=== PATIENT | female | born 1960 | race African-American/Black ===

== ENCOUNTER 2017-09-11 17:55 | Emergency (ER) | payer BC ==
[2017-09-11] MEDS ORDERED: LOSARTAN POTASSIUM 50 MG TABLET PO ONE (18:25)
[2017-09-11] MEDS ORDERED: HYDROCHLOROTHIAZIDE 25 MG TABLET PO ONE (18:25)
--- NOTE | 2017-09-11 18:35 | ER Document Report ---
ED ENT - General Chief Complaint: Cough, congestion Stated Complaint: SHORTNESS OF BREATH, COUGH Time Seen by Provider: 09/11/17 18:14 Mode of Arrival: Ambulatory Information source: Patient Notes: 37-year-old female presented to ED for concern complaint of a hard cough 1-2 weeks she states the cough has been so hard that sometimes she urinates herself. She also had a runny nose cough congestion and headache. She states she has not had any of her losartan HCTZ for 3-4 days because she did not have money for the co-pay. States she now has the money for the co-pay but she needs one tonight. She states she took some Sudafed for her cough and congestion which is elevated her pulse and blood pressure. Patient was informed she needs to take Coricidin HB for cough and cold symptoms when she has a little bit of blood pressure. TRAVEL OUTSIDE OF THE [place] IN LAST 30 DAYS: No - HPI Patient complains to provider of: Nose problem, Other Onset: Other - Cough 2 weeks Onset/Duration: Persistent, Worse Quality of pain: Achy Severity: None Pain Level: Denies Context: Recent Illness Location of pain: Nose, Sinus Associated symptoms: Chills, Congestion, Cough, Headache, Runny nose, Sinus drainage Similar symptoms previously: Yes Recently seen / treated by doctor: No - Related Data Allergies/Adverse Reactions: No Known Allergies Allergy (Verified 08/18/15 18:25) Past Medical History - General Information source: Patient - Social History Smoking Status: Never Smoker Cigarette use (# per day): No Chew tobacco use (# tins/day): No Smoking Education Provided: No Frequency of alcohol use: None Drug Abuse: None Lives with: Alone Family History: Reviewed & Not Pertinent, DM, Malignancy. denies: Arthritis, CAD, COPD, CVA, Hyperlipidemia, Hypertension, Thyroid Disfunction - Past Medical History Cardiac Medical History: Reports: Hx Hypertension Pulmonary Medical History: Reports: Hx Asthma, Hx Bronchitis EENT Medical History: Reports: None Neurological Medical History: Reports: None Endocrine Medical History: Reports: None Renal/ Medical History: Reports: None Malignancy Medical History: Reports: None GI Medical History: Reports: None Musculoskeltal Medical History: Reports Hx Arthritis, Reports Hx Musculoskeletal Deformity Skin Medical History: Reports None Psychiatric Medical History: Reports: None Traumatic Medical History: Reports: None Infectious Medical History: Reports: None Past Surgical History: Reports: Hx Hysterectomy, Hx Orthopedic Surgery - left total hip replacement, Hx Tubal Ligation - Immunizations Immunizations up to date: Yes Hx Diphtheria, Pertussis, Tetanus Vaccination: Yes Review of Systems - Review of Systems Constitutional: Recent illness EENT: Nose congestion, Nose discharge, Sinus discharge Cardiovascular: No symptoms reported Respiratory: Cough Gastrointestinal: No symptoms reported Genitourinary: No symptoms reported Female Genitourinary: No symptoms reported Musculoskeletal: No symptoms reported Skin: No symptoms reported Hematologic/Lymphatic: No symptoms reported Neurological/Psychological: Headaches -: Yes All other systems reviewed and negative Physical Exam - Vital signs Vitals: Temp Pulse Resp BP Pulse Ox 98.3 F 82 20 170/109 H 97 09/11/17 18:10 09/11/17 18:10 09/11/17 18:10 09/11/17 18:10 09/11/17 18:10 Interpretation: Hypertensive - General General appearance: Appears well, Alert - HEENT Head: Normocephalic, Atraumatic Eyes: Normal Pupils: PERRL Ears: Normal External canal: Normal Tympanic membrane: Normal Sinus: Normal Nasal: Swelling, Clear rhinorrhea Mouth/Lips: Normal Mucous membranes: Normal Pharynx: Post nasal drainage Neck: Normal - Respiratory Respiratory status: No respiratory distress Chest status: Nontender Breath sounds: Nonproductive cough. No: Productive cough, Rales, Rhonchi, Stridor, Wheezing Chest palpation: Normal - Cardiovascular Rhythm: Regular Heart sounds: Normal auscultation Murmur: No - Abdominal Inspection: Normal Distension: No distension Bowel sounds: Normal Tenderness: Nontender Organomegaly: No organomegaly - Back Back: Normal, Nontender - Extremities General upper extremity: Normal inspection, Nontender, Normal color, Normal ROM , Normal temperature General lower extremity: Normal inspection, Nontender, Normal color, Normal ROM , Normal temperature, Normal weight bearing. No: Cordell's sign - Neurological Neuro grossly intact: Yes Cognition: Normal Orientation: AAOx4 Hanna Coma Scale Eye Opening: Spontaneous [place]anna Coma Scale Verbal: Oriented Hanna Coma Scale Motor: Obeys Commands [place] Coma Scale Total: 15 Speech: Normal Motor strength normal: LUE, RUE, LLE, RLE Sensory: Normal - Psychological Associated symptoms: Normal affect, Normal mood - Skin Skin Temperature: Warm Skin Moisture: Dry Skin Color: Normal Course - Re-evaluation Re-evalutation: 09/12/17 02:21 Patient was treated with losartan HCTZ for her elevated blood pressure. Patient was also discharged home with prescription for Phenergan with codeine and instructed to please get Coricidin HB for her cough and cold symptoms and not to use regular [id number] cold medications with Sudafed. - Vital Signs Vital signs: Temp Pulse Resp BP Pulse Ox 98.3 F 80 16 148/93 H 97 09/11/17 18:10 09/11/17 19:14 09/11/17 19:14 09/11/17 19:14 09/11/17 19:14 Discharge - Discharge Clinical Impression: URI (upper respiratory infection) Qualifiers: URI type: unspecified URI Qualified Code(s): J06.9 - Acute upper respiratory infection, unspecified Hypertension Qualifiers: Hypertension type: unspecified Qualified Code(s): I10 - Essential (primary) hypertension Condition: Stable Disposition: HOME, SELF-CARE Instructions: Family Physicians / Practices Additional Instructions: HIGH BLOOD PRESSURE REQUIRING TREATMENT: Your blood pressure is high. This is called "hypertension." Today's reading was _170/109 (normal is less than 140/90). Your history and exam suggest that this is not a temporary problem. You need treatment of your blood pressure. If left untreated, high blood pressure greatly increases your risk of heart attack and stroke. Please don't ignore this problem. If you have blood pressure medicine but aren't using it regularly, start taking it again. Some simple things you can do to help are: Get some aerobic exercise for at least 20 minutes on a daily basis. (See your doctor before beginning any new exercise program.) Eat a low-fat diet. Lose excess weight. Avoid salty foods and avoid adding salt to any of the foods you eat. Avoid diet pills, decongestants, "energizing" herbs, and other medicines that elevate blood pressure. There are many different medicines that treat blood pressure. If your medication causes unpleasant side effects, call your doctor. There are others you can try. Treating hypertension is a life-long investment in your health. HYDROCHLOROTHIAZIDE: Hydrochlorothiazide is a diuretic medication. Diuretics are often called "water pills." The medicine flushes excess salt and water from the body. Diuretics are used for fluid retention (such as heart failure, cirrhosis, or lung disease) and for blood pressure control. Often hydrochlorothiazide is combined with other medicines in the same pill. Most patients prefer to take the medicine in the morning. Hydrochlorothiazide makes extra urine, which can be a problem if you take the pill at night. Diuretics make you lose potassium. Sometimes a good diet with plenty of fruit is enough to replace it. Sometimes a potassium supplement is necessary. Or, hydrochlorothiazide may be combined with medicines that prevent potassium loss. We usually recommend a blood potassium test in a few weeks. Contact your doctor if you develop extreme fatigue, muscle weakness, lethargy, confusion, or palpitations. UPPER RESPIRATORY ILLNESS: You have a viral infection of the respiratory passages -- a "cold." This common infection causes nasal congestion, drainage, and often sore throat and cough. It is highly contagious. The disease usually lasts about 10 to 14 days. There is no "cure" for the viral infection -- it must run its course. If there is a complication, such as bacterial infection in the nose, sinuses, middle ear, or bronchial tubes, antibiotics may be required. The antibiotics won't affect the virus. Drink plenty of fluids. A humidifier may help. An expectorant medication or decongestant may make you more comfortable. Use acetaminophen or ibuprofen for fever or aches. See the doctor if fever persists over two days, if there is any significant worsening of your symptoms, or if you simply fail to improve as expected. Salt and soda solution 1 quart of water 1 tablespoon of salt 1 teaspoon of baking soda Mixed 3 ingredients together and boil for 1 minute Placed in a covered quart jar Use 1/2 ounce of cold solution to gargle 3 times a day FOLLOW-UP CARE: If you have been referred to a physician for follow-up care, call the physician s office for an appointment as you were instructed or within the next two days. If you experience worsening or a significant change in your symptoms, notify the physician immediately or return to the Emergency Department at any time for re-evaluation. Prescriptions: Phenylephrine HCl/Cod/Prometh [Phenergan Vc-Codeine Syrup] 5 ml PO Q6HP PRN # 120 syrup PRN Reason: Forms: Elevated Blood Pressure Referrals: SURESH CHAMBERS MD [Primary Care Provider] - Follow up as needed
[2017-09-11 19:16] VITALS: BP 148/93
== END 2017-09-11 19:17 | disposition home or self-care (01) ==
LOC: ER 17:55
DX: J06.9 Acute upper respiratory infection, unspecified (principal); I10 Essential (primary) hypertension; R51 Headache; Z90.710 Acquired absence of both cervix and uterus
CPT/HCPCS: 99283

== ENCOUNTER 2017-11-26 01:16 | Emergency (ER) | payer BC ==
[2017-11-26] MEDS ORDERED: ACETAMINOPHEN 325 MG TABLET PO ONE (02:39)
[2017-11-26] MEDS ORDERED: ONDANSETRON 4 MG TAB.RAPDIS PO ONE (02:39)
--- NOTE | 2017-11-26 02:40 | ER Document Report ---
ED General - General Chief Complaint: High Blood Pressure Stated Complaint: BLOOD PRESSURE PROBLEMS Time Seen by Provider: 11/26/17 02:25 Notes: Patient is a 57-year-old female that comes emergency department for chief complaint of concerned about her blood pressure. She states that she went to work, find out that she had her schedule changed, became very upset about this, and then at home and tried to sleep, took her blood pressure because she started getting a mild headache, found it was elevated, went back to sleep, took it again it was elevated. She states also when she stands up she is intermittently getting lightheaded. She denies nausea or vomiting, visual changes, focal numbness or weakness. She is compliant with her blood pressure medication (losartan/HCTZ, 100/25 mg). She denies smoking or recreational drugs. TRAVEL OUTSIDE OF THE [place] IN LAST 30 DAYS: No - Related Data Allergies/Adverse Reactions: No Known Allergies Allergy (Verified 08/18/15 18:25) Past Medical History - General Information source: Patient - Social History Smoking Status: Never Smoker Frequency of alcohol use: None Drug Abuse: None Lives with: Family Family History: Reviewed & Not Pertinent, DM, Malignancy. denies: Arthritis, CAD, COPD, CVA, Hyperlipidemia, Hypertension, Thyroid Disfunction Patient has suicidal ideation: No Patient has homicidal ideation: No - Past Medical History Cardiac Medical History: Reports: Hx Hypertension Pulmonary Medical History: Reports: Hx Asthma, Hx Bronchitis Renal/ Medical History: Denies: Hx Peritoneal Dialysis Musculoskeltal Medical History: Reports Hx Arthritis, Reports Hx Musculoskeletal Deformity Past Surgical History: Reports: Hx Hysterectomy, Hx Orthopedic Surgery - left total hip replacement, Hx Tubal Ligation - Immunizations Immunizations up to date: Yes Hx Diphtheria, Pertussis, Tetanus Vaccination: Yes Review of Systems - Review of Systems Constitutional: No symptoms reported EENT: No symptoms reported Cardiovascular: See HPI Respiratory: No symptoms reported Gastrointestinal: No symptoms reported Genitourinary: No symptoms reported Female Genitourinary: No symptoms reported Musculoskeletal: No symptoms reported Skin: No symptoms reported Hematologic/Lymphatic: No symptoms reported Neurological/Psychological: See HPI Physical Exam - Vital signs Vitals: Temp Pulse Resp BP Pulse Ox 97.9 F 89 18 145/98 H 99 11/26/17 01:24 11/26/17 01:24 11/26/17 01:24 11/26/17 01:24 11/26/17 01:24 Interpretation: Normal - General General appearance: Appears well, Alert In distress: None - Patient alert, smiling, well-appearing - HEENT Head: Normocephalic, Atraumatic Eyes: Normal Pupils: PERRL - Respiratory Respiratory status: No respiratory distress Chest status: Nontender Breath sounds: Normal Chest palpation: Normal - Cardiovascular Rhythm: Regular. No: Tachycardia Heart sounds: Normal auscultation, S1 appreciated, S2 appreciated Murmur: No Normal capillary refill: Yes - Abdominal Inspection: Normal Distension: No distension Bowel sounds: Normal Tenderness: Nontender Organomegaly: No organomegaly - Back Back: Normal, Nontender - Extremities General upper extremity: Normal inspection, Nontender, Normal color, Normal ROM , Normal temperature General lower extremity: Normal inspection, Nontender, Normal color, Normal ROM , Normal temperature, Normal weight bearing. 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 Smiling and well-appearing. Blood pressure unremarkable. Neurological exam is normal. No chest pain. No vomiting. No neurological deficits. Patient given Tylenol and Zofran, afterwards she states she feels "great". She states she was stressed out at work but feels better now. CBC, chemistry generally unremarkable with mild leukopenia which is nonspecific. EKG with no acute findings. Unremarkable vital signs. No concerning symptoms reported. Very low suspicion of intracranial hemorrhage, ACS, or other acute abnormality. On reevaluation patient is asking to go home. She also asks if her sinus congestion can be treated with Suha, she was on this but ran out, she also states that she has out of her tramadol and she has chronic back pain and sciatica. Patient was provided with these, discussed workup, follow-up, recommendations, return precautions in detail. Patient states understanding and agreement - Vital Signs Vital signs: Temp Pulse Resp BP Pulse Ox 97.7 F 84 16 144/93 H 99 11/26/17 05:28 11/26/17 05:28 11/26/17 05:28 11/26/17 05:28 11/26/17 05:28 - Laboratory Result Diagrams: 11/26/17 03:00 11/26/17 03:00 Laboratory results interpreted by me: 11/26/17 03:00 WBC 3.7 L Hgb 15.6 H Seg Neutrophils % 38.3 L Lymphocytes % 47.0 H Absolute Neutrophils 1.4 L Discharge - Discharge Clinical Impression: Elevated blood pressure reading, Sinus congestion Condition: Stable Disposition: HOME, SELF-CARE Instructions: Oral Narcotic Medication ([facility]) Additional Instructions: Continue your current blood pressure medication regimen. Follow-up with your primary care to have this checked and for additional management. Take your tramadol for sciatica as needed, take your Zyrtec for your seasonal allergies daily. Return for any concerning symptoms including severe headache, vomiting, chest pain, difficulty breathing, or any other concerning symptoms. Prescriptions: Fexofenadine HCl [Suha Allergy] 180 mg PO DAILY #30 tablet Tramadol HCl 50 mg PO BID #20 tablet Forms: Elevated Blood Pressure
[2017-11-26 03:18] LABS: ABSOLUTE EOSINOPHILS # (AUTO) 0.1 10^3/uL (0.0-0.6); ABSOLUTE LYMPHOCYTES (AUTO) 1.8 10^3/uL (0.5-4.7); ABSOLUTE MONOCYTES (AUTO) 0.4 10^3/uL (0.1-1.4); ABSOLUTE NEUT (AUTO) 1.4 10^3/uL (1.7-8.2); BASOPHILS % (AUTO) 0.7 % (0-2); EOSINOPHILS % (AUTO) 2.5 % (0-6); HEMATOCRIT 45.6 % (36.0-47.0); HEMOGLOBIN 15.6 g/dL (12.0-15.5); MEAN CORPUSCULAR HGB CONC 34.3 g/dL (32.0-36.0); MEAN CORPUSCULAR VOLUME 87 fl (80-97); MONOCYTES % (AUTO) 11.5 % (3-13); PLATELET COUNT 262 10^3/uL (150-450); RED BLOOD COUNT 5.22 10^6/uL (3.72-5.28); RED CELL DISTRIBUTION WIDTH 13.6 % (11.5-14.0); SEGMENTED NEUTROPHILS % (AUTO) 38.3 % (42-78); TOTAL CELLS COUNTED % (AUTO) 100 %; WHITE BLOOD COUNT 3.7 10^3/uL (4.0-10.5)
[2017-11-26 03:45] LABS: ANION GAP 11 (5-19); BLOOD UREA NITROGEN 10 mg/dL (7-20); CALCIUM 10.2 mg/dL (8.4-10.2); CARBON DIOXIDE 27 mmol/L (22-30); CHLORIDE 104 mmol/L (98-107); GLUCOSE 84 mg/dL (75-110); POTASSIUM 3.7 mmol/L (3.6-5.0)
[2017-11-26 05:28] VITALS: BP 144/93
--- NOTE | 2017-11-26 09:57 | EKG REPORT ---
SEVERITY:- BORDERLINE ECG - SINUS RHYTHM PROBABLE LEFT ATRIAL ABNORMALITY : Confirmed by: Rosa Sandoval 26-Nov-2017 09:56:24
== END 2017-11-26 05:30 | disposition home or self-care (01) ==
LOC: ER 01:16
DX: R09.81 Nasal congestion (principal); R03.0 Elevated blood-pressure reading, without diagnosis of hypertension; R51 Headache; R42 Dizziness and giddiness; Z79.899 Other long term (current) drug therapy
CPT/HCPCS: 93005; 99284; 36415; 85025; 80048; 93010; S0119

== ENCOUNTER 2018-08-28 23:17 | Emergency (ER) | payer BC ==
[2018-08-29] MEDS ORDERED: ALBUTEROL SULFATE HFA (90 MCG/PUFF) 8 GM MDI (1 MDI/ER DISP) IH SCH (00:45)
[2018-08-29] MEDS ORDERED: PREDNISOLONE SOD PHOS 15 MG/5 ML ORAL SYRING PO ONE (00:45)
--- NOTE | 2018-08-29 00:46 | ER Document Report ---
ED General - General Chief Complaint: Painful Cough Stated Complaint: COUGH Time Seen by Provider: 08/29/18 00:36 Mode of Arrival: Ambulatory Information source: Patient TRAVEL OUTSIDE OF THE [place] IN LAST 30 DAYS: No - HPI Patient complains to provider of: cough Onset: Other - 49-year-old female with past medical history significant for hypertension as well as reactive airway disease that presents for evaluation of what she says a stereotypical of her seasonal allergy changes. She notes some wheezing and shortness of breath. She denies any chest pain, she denies any lightheadedness diaphoresis emesis fevers chills does have a little bit of phlegm when she coughs. Nothing is seem to make much better nothing seems to make it worse she has not tried anything to help it. In the past she is responded well she says to standard treatments for this. - Related Data Allergies/Adverse Reactions: No Known Allergies Allergy (Verified 08/18/15 18:25) Past Medical History - General Information source: Patient - Social History Smoking Status: Never Smoker Family History: Reviewed & Not Pertinent, DM, Malignancy. denies: Arthritis, CAD, COPD, CVA, Hyperlipidemia, Hypertension, Thyroid Disfunction - Past Medical History Cardiac Medical History: Reports: Hx Hypertension Pulmonary Medical History: Reports: Hx Asthma, Hx Bronchitis Renal/ Medical History: Denies: Hx Peritoneal Dialysis Musculoskeletal Medical History: Reports Hx Arthritis, Reports Hx Musculoskeletal Deformity Past Surgical History: Reports: Hx Hysterectomy, Hx Orthopedic Surgery - left total hip replacement, Hx Tubal Ligation - Immunizations Immunizations up to date: Yes Hx Diphtheria, Pertussis, Tetanus Vaccination: Yes Review of Systems - Review of Systems -: Yes All other systems reviewed and negative Physical Exam - Vital signs Vitals: Temp Pulse Resp BP Pulse Ox 98.4 F 80 18 150/100 H 98 08/29/18 00:10 08/29/18 00:10 08/29/18 00:10 08/29/18 00:10 08/29/18 00:10 - General General appearance: Appears well In distress: None - HEENT Head: Normocephalic Eyes: Normal Conjunctiva: Normal Pupils: PERRL - Respiratory Respiratory status: No respiratory distress Chest status: Nontender Breath sounds: Wheezing - Scant wheezes most prominent in the apices of the lungs Chest palpation: Normal - Cardiovascular Rhythm: Regular Heart sounds: Normal auscultation Murmur: No - Abdominal Inspection: Normal Distension: No distension Tenderness: Nontender - Back Back: Normal - Extremities General upper extremity: Normal inspection, Nontender, Normal color, Normal ROM , Normal temperature General lower extremity: Normal inspection, Nontender, Normal color, Normal ROM , Normal temperature, Normal weight bearing. No: Cordell's sign - Neurological Neuro grossly intact: Yes Cognition: Normal Orientation: AAOx4 Hanna Coma Scale Eye Opening: Spontaneous [place] Coma Scale Verbal: Oriented Hanna Coma Scale Motor: Obeys Commands [place] Coma Scale Total: 15 Speech: Normal Motor strength normal: LUE, RUE, LLE, RLE - Psychological Associated symptoms: Normal affect, Normal mood Course - Re-evaluation Re-evalutation: 08/29/18 02:22 This is a remarkably well-appearing 57-year-old female who has a past medical history of reactive airway disease. On examination she has a scant wheezes in the apices of the lungs but no other obvious symptoms. In the past she is responded well to conservative treatment. Because this seems very typical of her seasonal changes will plan for conservative course of treatment with metered-dose inhaler as well as steroids. We will also administer Tessalon Perles for her cough. Following administration of albuterol patient's cough shortness of breath and wheezes improved. We will plan for outpatient management with albuterol as well as steroids. Do not was represents a more serious underlying condition such as but not limited to pulmonary embolus, myocardial infarction, pneumothorax or otherwise. - Vital Signs Vital signs: Temp Pulse Resp BP Pulse Ox 98.4 F 80 18 150/100 H 98 08/29/18 00:10 08/29/18 00:10 08/29/18 00:10 08/29/18 00:10 08/29/18 00:10 Discharge - Discharge Clinical Impression: Cough, Wheezing Condition: Good Disposition: HOME, SELF-CARE Instructions: Bronchitis With Bronchospasm (Wheezing) ([facility]), Steroid Medication Additional Instructions: You were seen today in the emergency department for your cough as well as wheeze. You had an evaluation including a physical exam, you were given a steroid and an inhaler. Return for worsening shortness of breath, chest pain, inability to breathe or otherwise. Otherwise use the medications prescribed as directed and schedule an appointment with your doctor this week for further evaluation. Prescriptions: Benzonatate [Tessalon Perle 100 mg Capsule] 100 mg PO Q8HP PRN #40 cap PRN Reason: Prednisone [Deltasone 20 mg Tablet] 3 tab PO DAILY 5 Days tablet Forms: Elevated Blood Pressure
[2018-08-29 02:00] VITALS: BP 134/90
== END 2018-08-29 02:01 | disposition home or self-care (01) ==
LOC: ER 23:17
DX: J45.909 Unspecified asthma, uncomplicated (principal); R05 Cough; I10 Essential (primary) hypertension; R06.02 Shortness of breath
CPT/HCPCS: 99283; J7510; J3490

== ENCOUNTER 2018-09-17 22:22 | Emergency (ER) | payer BC ==
[2018-09-17 22:37] VITALS: BP 155/94
[2018-09-17] MEDS ORDERED: DEXAMETHASONE SOD PHOS INJ 10 MG/1 ML VIAL IM ONE (23:14)
--- NOTE | 2018-09-17 23:41 | ER Document Report ---
HPI - HPI Patient complains to provider of: sciatica Time Seen by Provider: 09/17/18 22:46 Pain Level: 4 Context: Pleasant 58 y/o female with h/o sciatica presents with acute lower back pain described as consistent with previous sciatica exacerbations. She states she ran out of her Tramadol Rx and is seeking relief. She denies any fevers, HAINES, SOB , CP, N/V/D, urinary retention, hematuria, saddle parasthesia, weakness or paralysis. - REPRODUCTIVE Reproductive: DENIES: : Past Medical History - General Information source: Patient - Social History Smoking Status: Never Smoker Frequency of alcohol use: None Drug Abuse: None Family History: Reviewed & Not Pertinent, DM, Malignancy. denies: Arthritis, CAD, COPD, CVA, Hyperlipidemia, Hypertension, Thyroid Disfunction - Past Medical History Cardiac Medical History: Reports: Hx Hypertension Pulmonary Medical History: Reports: Hx Asthma, Hx Bronchitis Renal/ Medical History: Denies: Hx Peritoneal Dialysis Musculoskeletal Medical History: Reports Hx Arthritis, Reports Hx Musculoskeletal Deformity Past Surgical History: Reports: Hx Hysterectomy, Hx Orthopedic Surgery - left total hip replacement, Hx Tubal Ligation - Immunizations Immunizations up to date: Yes Hx Diphtheria, Pertussis, Tetanus Vaccination: Yes Vertical Provider Document - CONSTITUTIONAL Agree With Documented VS: Yes Notes: Reviewed vital signs and nursing note as charted by RN. CONSTITUTIONAL: Well-appearing, well-nourished, acting appropriately for age HEAD: Normocephalic, atraumatic, no swelling EYES: PERRL, Conjunctivae clear, no drainage, EOMI, no scleral icterus ENT: External ears without lesions, External auditory canal is patent, TMs without erythema, landmarks clear and well visualized, no rhinorrhea, Pharynx without erythema or lesions, no tonsillar hypertrophy, airway patent, mucous membranes pink and moist NECK: Supple, no cervical lymphadenopathy, no masses CARD: Regular rate and rhythm, no murmurs, no rubs, no gallops, capillary refill < 2 seconds, symmetric pulses RESP: The lungs are clear to auscultation bilaterally, no wheezing, no rales, no rhonchi. Respiratory rate and effort are normal, normal chest excursion. No respiratory distress, no retractions, no stridor, no nasal flaring, no accessory muscle use. ABD/GI: Normal bowel sounds, non-distended, soft, non-tender, no rebound, no guarding, no palpable organomegaly. EXT: Normal ROM in all joints, non-tender to palpation, no effusions, no edema SKIN: Normal color for age and race, warm, dry, good turgor, no acute lesions noted NEURO: No facial asymmetry, moves all extremities equally, motor and sensory function intact MSK: acute TTP along R paraspinal muscle at level of L5 that radiates down right leg with parasthesa in R leg. - INFECTION CONTROL TRAVEL OUTSIDE OF THE [place] IN LAST 30 DAYS: No Course - Re-evaluation Re-evalutation: 09/18/18 00:11 Very pleasant 58-year-old female who presents to the emergency department for her typical sciatic pain that is a severe exacerbation. She has no other concerning symptoms. She denies fever, chest pain, shortness of breath, urinary retention, bowel incontinence, saddle paresthesia. Physical exam is consistent with acute paraspinal tenderness with paresthesias to her right leg. She ran out of her tramadol and is requesting a view until she can see her primary care provider I did a [facility] check which reveals no evidence of prescription misuse. I will also give her dexamethasone 10 mg IM x1 for attempted relief and send her home with a prescription for tramadol 50 mg #15 and Robaxin p.o. She is stable for discharge 09/18/18 00:13 09/18/18 00:19 - Vital Signs Vital signs: Temp Pulse Resp BP Pulse Ox 98.6 F 72 20 155/94 H 96 09/17/18 22:33 09/17/18 22:33 09/17/18 22:33 09/17/18 22:33 09/17/18 22:33 Discharge - Discharge Clinical Impression: Lower back pain Qualifiers: Chronicity: acute Back pain laterality: right Sciatica presence: with sciatica Sciatica laterality: sciatica of right side Qualified Code(s): M54.41 - Lumbago with sciatica, right side Condition: Stable Disposition: HOME, SELF-CARE Instructions: Low Back Pain ([facility]), Warm Packs ([facility]) Additional Instructions: You were seen in the emergency department this evening for lower back pain related to your sciatica. I have prescribed you with a muscle relaxer called Robaxin which will help with your symptoms. You can take this with the tramadol please note that it will make you sleepy and do not drive when taking these medications. If you have severe back pain, or unable to walk, develop a high fever, have urinary retention, or numbness in your sit bones please immediately return to the emergency department. Prescriptions: Tramadol HCl [Ultram 50 mg Tablet] 50 mg PO Q6HP PRN #14 tablet PRN Reason: Methocarbamol [Robaxin 750 mg Tablet] 750 mg PO Q4 #40 tablet Referrals: RAMA RUANO MD [Primary Care Provider] - Follow up as needed
== END 2018-09-18 00:05 | disposition home or self-care (01) ==
LOC: ER 22:22
DX: M54.41 Lumbago with sciatica, right side (principal); I10 Essential (primary) hypertension; Z90.710 Acquired absence of both cervix and uterus; Z96.642 Presence of left artificial hip joint
CPT/HCPCS: 99283; 96372; J1100

== ENCOUNTER 2018-11-11 15:18 | Emergency (ER) | payer BC ==
[2018-11-11] MEDS ORDERED: IPRATROPIUM/ALBUTEROL 0.5-2.5 MG/3 ML AMPUL NEB ONE (16:29)
[2018-11-11] MEDS ORDERED: ALBUTEROL SULFATE HFA (90 MCG/PUFF) 8 GM MDI (1 MDI/ER DISP) IH ONE (16:29)
[2018-11-11] MEDS ORDERED: AZITHROMYCIN 250 MG TABLET PO ONE (17:57)
--- NOTE | 2018-11-11 17:58 | ER Document Report ---
ED General - General Chief Complaint: Cough Stated Complaint: SHORTNESS OF BREATH Time Seen by Provider: 11/11/18 16:26 Primary Care Provider: RAMA RUANO MD [NO LOCAL MD] - Follow up as needed TRAVEL OUTSIDE OF THE [place] IN LAST 30 DAYS: No - HPI Patient complains to provider of: Cough short of breath Notes: Patient coming in for evaluation of cough short of breath ongoing for the last few days. Patient states normally is placed on Z-Will by her PCP Dr. Og. Patient states no fevers productive sputum yellow patient otherwise denies any recent travel denies any recent antibiotics resting comfortably no obvious distress upon my evaluation. Denies chest pain abdominal pain - Related Data Allergies/Adverse Reactions: No Known Allergies Allergy (Verified 08/18/15 18:25) Past Medical History - Social History Smoking Status: Unknown if Ever Smoked Chew tobacco use (# tins/day): No Frequency of alcohol use: None Drug Abuse: None Family History: Reviewed & Not Pertinent, DM, Malignancy. denies: Arthritis, CAD, COPD, CVA, Hyperlipidemia, Hypertension, Thyroid Disfunction Patient has suicidal ideation: No Patient has homicidal ideation: No - Past Medical History Cardiac Medical History: Reports: Hx Hypertension Pulmonary Medical History: Reports: Hx Asthma, Hx Bronchitis Renal/ Medical History: Denies: Hx Peritoneal Dialysis Musculoskeletal Medical History: Reports Hx Arthritis, Reports Hx Musculoskeletal Deformity Past Surgical History: Reports: Hx Hysterectomy, Hx Orthopedic Surgery - left total hip replacement, Hx Tubal Ligation - Immunizations Immunizations up to date: Yes Hx Diphtheria, Pertussis, Tetanus Vaccination: Yes Review of Systems - Review of Systems Constitutional: No symptoms reported EENT: No symptoms reported Cardiovascular: No symptoms reported Respiratory: Cough, Short of breath Gastrointestinal: No symptoms reported Genitourinary: No symptoms reported Female Genitourinary: No symptoms reported Musculoskeletal: No symptoms reported Skin: No symptoms reported Hematologic/Lymphatic: No symptoms reported Neurological/Psychological: No symptoms reported -: Yes All other systems reviewed and negative Physical Exam - Vital signs Vitals: Temp Pulse Resp BP Pulse Ox 98.9 F 82 18 180/108 H 97 11/11/18 15:22 11/11/18 15:22 11/11/18 15:22 11/11/18 15:22 11/11/18 15:22 Interpretation: Normal - General General appearance: Appears well, Alert - HEENT Head: Normocephalic, Atraumatic Eyes: Normal Pupils: PERRL - Respiratory Respiratory status: No respiratory distress Chest status: Nontender Breath sounds: Wheezing Chest palpation: Normal - Cardiovascular Rhythm: Regular Heart sounds: Normal auscultation Murmur: No - Abdominal Inspection: Normal Distension: No distension Bowel sounds: Normal Tenderness: Nontender Organomegaly: No organomegaly - Back Back: Normal, Nontender - Extremities General upper extremity: Normal inspection, Nontender, Normal color, Normal ROM, Normal temperature General lower extremity: Normal inspection, Nontender, Normal color, Normal ROM, Normal temperature, Normal weight bearing. No: Cordell's sign - Neurological Neuro grossly intact: Yes Cognition: Normal Orientation: AAOx4 [place]anna Coma Scale Eye Opening: Spontaneous [place] Coma Scale Verbal: Oriented [place] Coma Scale Motor: Obeys Commands [place] Coma Scale Total: 15 Speech: Normal Motor strength normal: LUE, RUE, LLE, RLE Sensory: Normal - Psychological Associated symptoms: Normal affect, Normal mood - Skin Skin Temperature: Warm Skin Moisture: Dry Skin Color: Normal Course - Re-evaluation Re-evalutation: 11/11/18 20:38 Patient with developing bronchitis. Patient will be started on Zithromax patient discharged home. - Vital Signs Vital signs: Temp Pulse Resp BP Pulse Ox 98.1 F 75 18 159/101 H 98 11/11/18 18:40 11/11/18 18:40 11/11/18 15:22 11/11/18 18:40 11/11/18 18:40 Discharge - Discharge Clinical Impression: bronchitis with cough Condition: Good Disposition: HOME, SELF-CARE Instructions: [facility]), Inhaled Bronchodilators ([facility]) Additional Instructions: Your evaluation is consistent with bronchitis we recommend taking the antibiotic as prescribed please use inhaler 2 puffs every 4 hours as needed for shortness of breath or wheezing follow-up with your primary care physician return to ER symptoms worsen. Prescriptions: Azithromycin [Zithromax] 250 mg PO DAILY #4 tablet Referrals: RAMA RUANO MD [NO LOCAL MD] - Follow up as needed
--- NOTE | 2018-11-11 18:13 | RADIOLOGY REPORT (SQ) ---
EXAM DESCRIPTION: CHEST 2 VIEWS COMPLETED DATE/TIME: 11/11/2018 5:49 pm REASON FOR STUDY: sob COMPARISON: 12/01/2014 EXAM PARAMETERS: NUMBER OF VIEWS: two views TECHNIQUE: Digital Frontal and Lateral radiographic views of the chest acquired. RADIATION DOSE: NA LIMITATIONS: none FINDINGS: LUNGS AND PLEURA: No opacities, masses or pneumothorax. No pleural effusion. Unchanged el evation of the left hemidiaphragm. MEDIASTINUM AND HILAR STRUCTURES: No masses or contour abnormalities. HEART AND VASCULAR STRUCTURES: Heart normal size. No evidence for failure. BONES: Disc degenerative disease of the thoracic spine. HARDWARE: None in the chest. OTHER: No other significant finding. IMPRESSION: No acute abnormality of the lungs. Unchanged elevation of the left hemidiaphragm. No f ocal airspace opacity. TECHNICAL DOCUMENTATION: JOB ID: [id number] [employer]- All Rights Reserved Reading location - IP/workstation name: [email or web address]
[2018-11-11 18:41] VITALS: BP 159/101
== END 2018-11-11 18:41 | disposition home or self-care (01) ==
LOC: ER 15:18
DX: J45.909 Unspecified asthma, uncomplicated (principal); R05 Cough; R06.02 Shortness of breath; I10 Essential (primary) hypertension
CPT/HCPCS: 94640; 99283; 71046; J3490; J7620

== ENCOUNTER 2019-01-17 08:12 | Emergency (ER) | payer BC ==
[2019-01-17 08:23] VITALS: BP 162/97
[2019-01-17] MEDS ORDERED: LIDOCAINE 5% (700 MG) TRANSDERMAL ADH..PATCH TP ONE (09:10)
[2019-01-17] MEDS ORDERED: KETOROLAC TROMETHAMINE 60 MG/2 ML SDV IM ONE (09:10)
--- NOTE | 2019-01-17 09:10 | ER Document Report ---
HPI - HPI Patient complains to provider of: pain, muscle spasm Time Seen by Provider: 01/17/19 08:38 Pain Level: 4 Context: 58 y/o female with h/o sciatica presents with acute lower back pain described as consistent with previous sciatica exacerbations. She states she ran out of her Tramadol Rx. She denies any fevers, HAINES, SOB, CP, N/V/D, urinary retention, hematuria, saddle parasthesia, weakness or paralysis. Pt is also requesting a refill of her losartan/HCTZ 100/25. - REPRODUCTIVE Reproductive: DENIES: : Past Medical History - Social History Smoking Status: Never Smoker Family History: Reviewed & Not Pertinent, DM, Malignancy. denies: Arthritis, CAD, COPD, CVA, Hyperlipidemia, Hypertension, Thyroid Disfunction Patient has suicidal ideation: No Patient has homicidal ideation: No - Past Medical History Cardiac Medical History: Reports: Hx Hypertension Pulmonary Medical History: Reports: Hx Asthma, Hx Bronchitis Renal/ Medical History: Denies: Hx Peritoneal Dialysis Musculoskeletal Medical History: Reports Hx Arthritis, Reports Hx Musculoskeletal Deformity Past Surgical History: Reports: Hx Hysterectomy, Hx Orthopedic Surgery - left total hip replacement, Hx Tubal Ligation - Immunizations Immunizations up to date: Yes Hx Diphtheria, Pertussis, Tetanus Vaccination: Yes Vertical Provider Document - CONSTITUTIONAL Notes: PHYSICAL EXAMINATION: Reviewed vital signs and charting by RN GENERAL: Alert, interacts well. No acute distress. HEAD: Normocephalic, atraumatic. EYES: Pupils equal and round. Extraocular movements intact. NECK: Full range of motion. Supple. Trachea midline. LUNGS: Clear to auscultation bilaterally, no wheezes, rales, or rhonchi. No respiratory distress. HEART: Regular rate and rhythm. No murmur EXTREMITIES: Moves all 4 extremities spontaneously. No edema, No cyanosis. Normal distal neurovascular exam BACK: No CVAT, point tenderness at the level of L5-S1 left side with provoked radiculopathy NEUROLOGIC: Oriented and appropriate. Normal speech. PSYCH: Normal affect, normal mood. SKIN: Warm, dry, normal turgor. No rashes or lesions noted. - INFECTION CONTROL TRAVEL OUTSIDE OF THE [place] IN LAST 30 DAYS: No Course - Re-evaluation Re-evalutation: 01/17/19 09:05 Overall well-appearing. Presentation similar to previous visit on 09/17/2018 with same symptoms. Will fill her blood pressure medication as she does not yet have a primary care doctor but has an established antihypertensive regimen. Also, we will give her lidocaine patch, Toradol 30 IM, and a small prescription for tramadol. - Vital Signs Vital signs: Temp Pulse Resp BP Pulse Ox 98.0 F 82 14 162/97 H 94 01/17/19 08:21 01/17/19 08:21 01/17/19 08:21 01/17/19 08:21 01/17/19 08:21 Discharge - Discharge Clinical Impression: Sciatica Qualifiers: Laterality: left Qualified Code(s): M54.32 - Sciatica, left side Condition: Good Disposition: HOME, SELF-CARE Instructions: Sciatica ([facility]) Additional Instructions: You have been seen in the Emergency Department (ED) today for back pain. Your workup and exam have not shown any acute abnormalities and you are likely suffering from muscle strain or possible problems with your discs, but there is no treatment that will fix your symptoms at this time. Please take the naproxen that has been prescribed as directed. You should also purchase a local lidocaine cream such as "aspercreme with lidocaine" and use per bottle instructions to the affected area. Apply heat to the area as often as you are able. Continue to keep active and avoid prolonged periods of bed rest. Please follow up with your doctor as soon as possible regarding today's ED visit and your back pain. Return to the ED for worsening back pain, fever, weakness or numbness of either leg, or if you develop either (1) an inability to urinate or have bowel movements, or (2) loss of your ability to control your bathroom functions (if you start having "accidents"), or if you develop other new symptoms that concern you.concern you. Referrals: SURESH CHAMBERS MD [Primary Care Provider] - Follow up as needed
== END 2019-01-17 09:28 | disposition home or self-care (01) ==
LOC: ER 08:12
DX: M54.42 Lumbago with sciatica, left side (principal); I10 Essential (primary) hypertension; J45.909 Unspecified asthma, uncomplicated; Z96.642 Presence of left artificial hip joint
CPT/HCPCS: 99283; 96372; J1885

== ENCOUNTER 2019-06-13 03:50 | Emergency (ER) | payer BC ==
--- NOTE | 2019-06-13 04:15 | ER Document Report ---
ED Neck/Back Problem - General Chief Complaint: Back Pain Stated Complaint: BACK PAIN Time Seen by Provider: 06/13/19 04:14 Primary Care Provider: SURESH CHAMBERS MD [Primary Care Provider] - Follow up as needed Mode of Arrival: Ambulatory Information source: Patient Notes: HISTORY OF PRESENT ILLNESS: Patient is a 58-year-old female with a past medical history of chronic back pain who presents with acute worsening of her chronic back pain that began prior to arrival. Patient reports that she is out of her back pain medications, which includes tramadol. Mechanism of injury: None Location: Low back Onset: Tonic Provocation: Lifting, twisting, pulling Quality: Aching, throbbing Radiation: None Severity: Currently moderate Timing: Consistent Numbness/Tingling: None REVIEW OF SYSTEMS: CONSTITUTIONAL : Denies fever or chills, no sweats. Denies recent illness. EENT: Denies eye, ear, throat, or mouth pain or symptoms. Denies nasal or sinus congestion. CARDIOVASCULAR: Denies chest pain. RESPIRATORY: Denies cough, cold, or chest congestion. Denies shortness of breath, difficulty breathing, or wheezing. GASTROINTESTINAL: Denies abdominal pain. Denies nausea, vomiting, or diarrhea. Denies constipation. GENITOURINARY: Denies difficulty urinating, painful urination, burning, frequency, or blood in urine. FEMALE GENITOURINARY: Denies vaginal bleeding, abnormal or irregular periods. Last menstrual period MUSCULOSKELETAL: Positive for acute and chronic back pain. SKIN: Denies rash or skin lesions. HEMATOLOGIC : Denies easy bruising or bleeding. LYMPHATIC: Denies swollen, enlarged glands. NEUROLOGICAL: Denies weakness or paralysis or loss of use of either side. Denies problems with gait or speech. Denies sensory or motor loss. PSYCHIATRIC: Denies anxiety or stress or depression. All other systems reviewed and negative. PHYSICAL EXAMINATION: GENERAL: Well-appearing, well-nourished and in no acute distress. HEAD: Atraumatic, normocephalic. No scalp deformity, depression, or crepitance. EYES: Pupils are 3 mm and equal/round/reactive to light, extraocular movements intact, sclera anicteric, conjunctiva are normal. ENT: Nares patent bilaterally, oropharynx clear without exudates or palatal petechia. Moist mucous membranes. No tonsil hypertrophy. NECK: Normal range of motion, supple without lymphadenopathy. LUNGS: Breath sounds present, equal, and clear to auscultation bilaterally. No wheezes, rales, or rhonchi. HEART: Regular rate and rhythm without murmurs, rubs, or gallops. 2+ peripheral pulses. Normal capillary refill. ABDOMEN: Soft, nontender, nondistended. Normoactive bowel sounds. No guarding, no rebound. No masses appreciated. BACK: Normal contour, mild tenderness of the paraspinal musculature of the lower lumbar area, negative straight leg raise. Rectal exam deferred. GENITAL/PELVC: Deferred. EXTREMITIES: Normal range of motion, no obvious deformity. No pitting or edema. No cyanosis and normal capillary refill <2 seconds. NEUROLOGICAL: No focal neurological deficits. Moves all extremities spontaneously and on command. PSYCH: Normal mood, normal affect. No suicidal thoughts/ideations. No homicidal thoughts/ideations. No hallucinations. SKIN: Warm, dry, normal turgor, no rashes or lesions noted. ASSESSMENT AND PLAN: This patient is a 58-year-old female who presents with acute worsening of her chronic back pain consistent with lumbar strain versus chronic sciatica. 1. Will give intramuscular Toradol and reassess. 2. Will discharge the patient home with strict return precautions and follow-up with primary physician. All results were explained to and discussed with the patient, and all questions addressed and answered for the patient. The patient voices both understanding and agreeing with the plan. TRAVEL OUTSIDE OF THE [place] IN LAST 30 DAYS: No - HPI Patient complains to provider of: Pain, Lower back Onset: Other - Chronic Onset: Chronic Timing: Constant Quality of pain: Cramping, Throbbing Severity: Moderate Pain Level: 3 Recent injury: No Associated symptoms: None Exacerbated by: Other - Bending, twisting Relieved by: Nothing Similar symptoms previously: Yes Recently seen / treated by doctor: No - Related Data Allergies/Adverse Reactions: No Known Allergies Allergy (Verified 06/13/19 04:23) Past Medical History - General Information source: Patient - Social History Smoking Status: Never Smoker Chew tobacco use (# tins/day): No Frequency of alcohol use: None Drug Abuse: None Lives with: Family Family History: Reviewed & Not Pertinent, DM, Malignancy. denies: Arthritis, CAD, COPD, CVA, Hyperlipidemia, Hypertension, Thyroid Disfunction - Past Medical History Cardiac Medical History: Reports: Hx Hypertension Pulmonary Medical History: Reports: Hx Asthma, Hx Bronchitis EENT Medical History: Reports: None Neurological Medical History: Reports: None Endocrine Medical History: Reports: None Renal/ Medical History: Reports: None. Denies: Hx Peritoneal Dialysis Malignancy Medical History: Reports: None GI Medical History: Reports: None Musculoskeletal Medical History: Reports Hx Arthritis, Reports Hx Musculoskeletal Deformity Psychiatric Medical History: Reports: None Traumatic Medical History: Reports: None Infectious Medical History: Reports: None Past Surgical History: Reports: Hx Hysterectomy, Hx Orthopedic Surgery - left total hip replacement, Hx Tubal Ligation - Immunizations Immunizations up to date: Yes Hx Diphtheria, Pertussis, Tetanus Vaccination: Yes Review of Systems - Review of Systems Constitutional: No symptoms reported EENT: No symptoms reported Cardiovascular: No symptoms reported Respiratory: No symptoms reported Gastrointestinal: No symptoms reported Genitourinary: No symptoms reported Female Genitourinary: No symptoms reported Musculoskeletal: See HPI, Back pain Skin: No symptoms reported Hematologic/Lymphatic: No symptoms reported Neurological/Psychological: No symptoms reported -: Yes All other systems reviewed and negative Physical Exam - Vital signs Vitals: Temp Pulse Resp BP Pulse Ox 98 F 100 16 140/83 H 96 06/13/19 04:02 06/13/19 04:02 06/13/19 04:02 06/13/19 04:02 06/13/19 04:02 Interpretation: Normal - General General appearance: Appears well, Alert - HEENT Head: Normocephalic, Atraumatic Eyes: Normal Pupils: PERRL - Respiratory Respiratory status: No respiratory distress Chest status: Nontender Breath sounds: Normal Chest palpation: Normal - Cardiovascular Rhythm: Regular Heart sounds: Normal auscultation Murmur: No - Abdominal Inspection: Normal Distension: No distension Bowel sounds: Normal Tenderness: Nontender Organomegaly: No organomegaly - Back Back: Normal, Nontender - Extremities General upper extremity: Normal inspection, Nontender, Normal color, Normal ROM, Normal temperature General lower extremity: Normal inspection, Nontender, Normal color, Normal ROM, Normal temperature, Normal weight bearing. No: Cordell's sign - Neurological Neuro grossly intact: Yes Cognition: Normal Orientation: AAOx4 Hanna Coma Scale Eye Opening: Spontaneous [place] Coma Scale Verbal: Oriented [place] Coma Scale Motor: Obeys Commands [place]anna Coma Scale Total: 15 Speech: Normal Motor strength normal: LUE, RUE, LLE, RLE Sensory: Normal - Psychological Associated symptoms: Normal affect, Normal mood - Skin Skin Temperature: Warm Skin Moisture: Dry Skin Color: Normal Course - Vital Signs Vital signs: Temp Pulse Resp BP Pulse Ox 98 F 100 16 140/83 H 96 06/13/19 04:02 06/13/19 04:02 06/13/19 04:02 06/13/19 04:02 06/13/19 04:02 Discharge - Discharge Clinical Impression: Chronic back pain Qualifiers: Back pain location: low back pain Back pain laterality: midline Sciatica presence: with sciatica Sciatica laterality: sciatica of right side Qualified Code(s): M54.41 - Lumbago with sciatica, right side; G89.29 - Other chronic pain Condition: Good Disposition: HOME, SELF-CARE Instructions: Low Back Pain ([facility]) Additional Instructions: You have been evaluated in the Emergency Department for acute worsening of your chronic back pain. While here, you were given pain medications and it is now safe to be discharged home. Please follow-up with your primary physician as instructed in 1 week to be rechecked. Return to the Emergency Department if you experience worsening pain, the inability to walk, urinary retention, or any other concerning symptoms. Prescriptions: Tramadol HCl [Ultram 50 mg Tablet] 50 mg PO Q6HP PRN #28 tablet PRN Reason: For Pain Losartan/Hydrochlorothiazide [Losartan-Hctz 100-25 mg Tab] 1 each PO DAILY #30 tablet Referrals: SURESH CHAMBERS MD [Primary Care Provider] - Follow up as needed Print Language: Salvadorean
[2019-06-13] MEDS ORDERED: KETOROLAC TROMETHAMINE 60 MG/2 ML SDV IM ONE (04:39)
[2019-06-13 06:00] VITALS: BP 149/111
== END 2019-06-13 06:01 | disposition home or self-care (01) ==
LOC: ER 03:50
DX: G89.29 Other chronic pain (principal); M54.41 Lumbago with sciatica, right side; I10 Essential (primary) hypertension; J45.909 Unspecified asthma, uncomplicated
CPT/HCPCS: 99283; 96372; J1885

== ENCOUNTER 2019-08-01 15:20 | Emergency (ER) | payer BC ==
[2019-08-01] MEDS ORDERED: IPRATROPIUM/ALBUTEROL 0.5-2.5 MG/3 ML AMPUL NEB ONE (16:17)
--- NOTE | 2019-08-01 16:18 | ER Document Report ---
ED Medical Screen (RME) - General Chief Complaint: Cold Symptoms Stated Complaint: COLD Time Seen by Provider: 08/01/19 16:15 Primary Care Provider: SURESH CHAMBERS MD [Primary Care Provider] - Follow up as needed Information source: Patient Notes: Patient presents complaining of cough and congestion for the past week. Patient reports shortness of breath that started today. Patient denies any chest pain symptoms. Patient states that she does have a history of asthma. I have greeted and performed a rapid initial assessment of this patient. A comprehensive ED assessment and evaluation of the patient, analysis of test results and completion of the medical decision making process will be conducted by additional ED providers. TRAVEL OUTSIDE OF THE [place] IN LAST 30 DAYS: No - Related Data Allergies/Adverse Reactions: No Known Allergies Allergy (Verified 08/01/19 16:13) Past Medical History - Past Medical History Cardiac Medical History: Reports: Hx Hypertension Pulmonary Medical History: Reports: Hx Asthma, Hx Bronchitis Renal/ Medical History: Denies: Hx Peritoneal Dialysis Musculoskeltal Medical History: Reports Hx Arthritis, Reports Hx Musculoskeletal Deformity Past Surgical History: Reports: Hx Hysterectomy, Hx Orthopedic Surgery - left total hip replacement, Hx Tubal Ligation - Immunizations Immunizations up to date: Yes Hx Diphtheria, Pertussis, Tetanus Vaccination: Yes Physical Exam - Vital signs Vitals: Temp Pulse Resp BP Pulse Ox 98.2 F 70 18 156/96 H 98 08/01/19 15:38 08/01/19 15:38 08/01/19 15:38 08/01/19 15:38 08/01/19 15:38 - General General appearance: Appears well - Respiratory Respiratory status: No respiratory distress Chest status: Nontender Breath sounds: Nonproductive cough. No: Rales, Rhonchi, Stridor, Wheezing Chest palpation: Normal Course - Vital Signs Vital signs: Temp Pulse Resp BP Pulse Ox 98.2 F 70 18 156/96 H 98 08/01/19 15:38 08/01/19 15:38 08/01/19 15:38 08/01/19 15:38 08/01/19 15:38 Doctor's Discharge - Discharge Referrals: SURESH CHAMBERS MD [Primary Care Provider] - Follow up as needed
--- NOTE | 2019-08-01 16:46 | RADIOLOGY REPORT (SQ) ---
EXAM DESCRIPTION: CHEST 2 VIEWS COMPLETED DATE/TIME: 08/01/2019 4:38 pm REASON FOR STUDY: cough, sob COMPARISON: 11/11/2018 EXAM PARAMETERS: NUMBER OF VIEWS: two views TECHNIQUE: Digital Frontal and Lateral radiographic views of the chest acquired. RADIATION DOSE: NA LIMITATIONS: none FINDINGS: LUNGS AND PLEURA: No opacities, masses or pneumothorax. No pleural effusion. MEDIASTINUM AND HILAR STRUCTURES: No masses or contour abnormalities. HEART AND VASCULAR STRUCTURES: Heart normal size. No evidence for failure. BONES: No acute findings. HARDWARE: None in the chest. OTHER: No other significant finding. IMPRESSION: NO ACUTE RADIOGRAPHIC FINDING IN THE CHEST. TECHNICAL DOCUMENTATION: JOB ID: [id number] [employer]- All Rights Reserved Reading location - IP/workstation name: [email or web address]
[2019-08-01 17:09] LABS: ABSOLUTE EOSINOPHILS # (AUTO) 0.1 10^3/uL (0.0-0.6); ABSOLUTE LYMPHOCYTES (AUTO) 2.3 10^3/uL (0.5-4.7); ABSOLUTE MONOCYTES (AUTO) 0.6 10^3/uL (0.1-1.4); ABSOLUTE NEUT (AUTO) 1.8 10^3/uL (1.7-8.2); BASOPHILS % (AUTO) 0.6 % (0-2); EOSINOPHILS % (AUTO) 2.6 % (0-6); HEMATOCRIT 44.3 % (36.0-47.0); HEMOGLOBIN 14.8 g/dL (12.0-15.5); LYMPHOCYTES % (AUTO) 47.7 % (13-45); MEAN CORPUSCULAR HEMOGLOBIN 29.2 pg (27.0-33.4); MEAN CORPUSCULAR HGB CONC 33.4 g/dL (32.0-36.0); MEAN CORPUSCULAR VOLUME 88 fl (80-97); MONOCYTES % (AUTO) 11.6 % (3-13); PLATELET COUNT 265 10^3/uL (150-450); RED BLOOD COUNT 5.06 10^6/uL (3.72-5.28); RED CELL DISTRIBUTION WIDTH 13.8 % (11.5-14.0); SEGMENTED NEUTROPHILS % (AUTO) 37.5 % (42-78); TOTAL CELLS COUNTED % (AUTO) 100 %; WHITE BLOOD COUNT 4.8 10^3/uL (4.0-10.5)
[2019-08-01 17:26] LABS: ALBUMIN 4.5 g/dL (3.5-5.0); ALKALINE PHOSPHATASE 88 U/L (38-126); ANION GAP 10 (5-19); ASPARTATE AMINO TRANSFERASE 26 U/L (14-36); BILIRUBIN,DIRECT 0.1 mg/dL (0.0-0.4); BILIRUBIN,TOTAL 0.5 mg/dL (0.2-1.3); BLOOD UREA NITROGEN 14 mg/dL (7-20); CALCIUM 9.9 mg/dL (8.4-10.2); CARBON DIOXIDE 29 mmol/L (22-30); CHLORIDE 103 mmol/L (98-107); GLUCOSE 83 mg/dL (75-110); POTASSIUM 4.1 mmol/L (3.6-5.0); TOTAL PROTEIN 7.9 g/dL (6.3-8.2)
[2019-08-01 17:39] LABS: NT PRO BNP 45 pg/mL (5-900); TROPONIN I < 0.012 ng/mL
[2019-08-01] MEDS ORDERED: ALBUTEROL SULFATE HFA (90 MCG/PUFF) 8 GM MDI (1 MDI/ER DISP) IH ONE (18:06)
--- NOTE | 2019-08-01 18:19 | ER Document Report ---
ED General - General Chief Complaint: Congestion Stated Complaint: COLD Time Seen by Provider: 08/01/19 16:15 Primary Care Provider: SURESH CHAMBERS MD [Primary Care Provider] - Follow up as needed Notes: 58-year-old female with past medical history of asthma and hypertension presents to the emergency department with chief complaint of cough and postnasal drip x7 days. Patient states that whenever she lays down she gets congestion and it drains in the back of her throat causing her to cough. Patient denies any fevers or chills, denies headache, denies any ear pain or sore throat, denies any dizziness or lightheadedness, denies diaphoresis, denies nausea or vomiting, denies chest pain. No other complaints. TRAVEL OUTSIDE OF THE [place] IN LAST 30 DAYS: No - Related Data Allergies/Adverse Reactions: No Known Allergies Allergy (Verified 08/01/19 16:13) Past Medical History - General Information source: Patient - Social History Smoking Status: Never Smoker Chew tobacco use (# tins/day): No Frequency of alcohol use: None Family History: Reviewed & Not Pertinent, DM, Malignancy. denies: Arthritis, CAD, COPD, CVA, Hyperlipidemia, Hypertension, Thyroid Disfunction Patient has suicidal ideation: No Patient has homicidal ideation: No - Past Medical History Cardiac Medical History: Reports: Hx Hypertension Pulmonary Medical History: Reports: Hx Asthma, Hx Bronchitis Renal/ Medical History: Denies: Hx Peritoneal Dialysis Musculoskeletal Medical History: Reports Hx Arthritis, Reports Hx Muscul oskeletal Deformity Past Surgical History: Reports: Hx Hysterectomy, Hx Orthopedic Surgery - left total hip replacement, Hx Tubal Ligation - Immunizations Immunizations up to date: Yes Hx Diphtheria, Pertussis, Tetanus Vaccination: Yes Review of Systems - Review of Systems Constitutional: See HPI EENT: See HPI Cardiovascular: See HPI Respiratory: See HPI Gastrointestinal: See HPI Genitourinary: No symptoms reported Female Genitourinary: No symptoms reported Musculoskeletal: No symptoms reported Skin: No symptoms reported Hematologic/Lymphatic: No symptoms reported Neurological/Psychological: No symptoms reported Physical Exam - Vital signs Vitals: Temp Pulse Resp BP Pulse Ox 98.2 F 70 18 156/96 H 98 08/01/19 15:38 08/01/19 15:38 08/01/19 15:38 08/01/19 15:38 08/01/19 15:38 - Notes Notes: PHYSICAL EXAMINATION: Reviewed vital signs and charting by RN GENERAL: Alert, interacts well. No acute distress. HEAD: Normocephalic, atraumatic. EYES: Pupils equal and round. Extraocular movements intact. ENT: Oral mucosa moist, tongue midline. NECK: Full range of motion. Trachea midline. LUNGS: Clear to auscultation bilaterally, mild end expiratory wheezes, no rales or rhonchi. No respiratory distress. HEART: Regular rate and rhythm. No murmur ABDOMEN: soft, non-tender. No distention. Bowel sounds present EXTREMITIES: Moves all 4 extremities spontaneously. No edema, No cyanosis. PSYCH: Normal affect, normal mood. SKIN: Warm, dry, normal turgor. No rashes or lesions noted. Course - Re-evaluation Re-evalutation: 08/01/19 18:21 Presentation is most consistent with a viral upper respiratory infection. Patient is overall well appearance, vitals within normal limits, well-hydrated. Patient denies any headache, neck pain, and has no evidence of meningismus on examination. I do hear bibasilar end expiratory wheezes. No evidence of respiratory distress. Based on clinical exam and history, I do not suspect an acute pneumonia, meningitis, strep pharyngitis, or an acute encephalitis. Chest x-ray did not show any pulmonary infiltrate or consolidation and lab work was all within normal limits, no leukocytosis. Will discharge patient with return precautions and followup recommendations. They are in agreement this plan have verbalized understanding return precautions. - Vital Signs Vital signs: Temp Pulse Resp BP Pulse Ox 98.2 F 70 18 156/96 H 98 08/01/19 15:38 08/01/19 15:38 08/01/19 15:38 08/01/19 15:38 08/01/19 15:38 - Laboratory Result Diagrams: 08/01/19 16:50 08/01/19 16:50 Laboratory results interpreted by me: 08/01/19 16:50 Lymph % (Auto) 47.7 H Seg Neutrophils % 37.5 L Discharge - Discharge Clinical Impression: Cough, Wheezing, Sinus congestion Condition: Good Disposition: HOME, SELF-CARE Additional Instructions: You have been seen and treated in the emergency department for an upper respiratory infection and sinus congestion. These are typically caused by viruses and do not respond to antibiotics. Please make sure you using any prescription medications as prescribed. Please also continue to take [id number] Tylenol and Motrin for your generalized body aches, fever. Please stay well-hydrated and get plenty of rest. Please follow-up with your primary care provider in the next 24 to 48 hours. Please return to the emergency room should you have any other concerning symptoms. Referrals: SURESH CHAMBERS MD [Primary Care Provider] - Follow up as needed
[2019-08-01 18:33] VITALS: BP 139/84
== END 2019-08-01 18:33 | disposition home or self-care (01) ==
LOC: ER 15:20
DX: R05 Cough (principal); R09.81 Nasal congestion; R09.82 Postnasal drip; J45.909 Unspecified asthma, uncomplicated; I10 Essential (primary) hypertension
CPT/HCPCS: 36415; 85025; 80053; 84484; 83880; 71046; J3490; J7620; 94640; 99283

== ENCOUNTER 2019-08-08 03:30 | Emergency (ER) | payer SELFPAY ==
--- NOTE | 2019-08-08 05:41 | ER Document Report ---
HPI - HPI Time Seen by Provider: 08/08/19 05:07 Pain Level: 3 Context: Patient is a 58-year-old female that comes emergency department for chief complaint of ongoing sinus congestion, drainage, and now she is developing pain. She states that she has been dealing with this for almost 2-1/2 weeks now, she was seen 1 week ago and given Flonase, she states she is gotten worse despite this, she states she has sinus pain, postnasal drainage and occasional cough. She denies fever/chills, difficulty breathing. She does not smoke. She is treated for hypertension, denies medical history otherwise. She denies history of asthma. - REPRODUCTIVE Reproductive: DENIES: : Past Medical History - General Information source: Patient - Social History Smoking Status: Never Smoker Frequency of alcohol use: None Lives with: Family Family History: Reviewed & Not Pertinent, DM, Malignancy. denies: Arthritis, CAD, COPD, CVA, Hyperlipidemia, Hypertension, Thyroid Disfunction Patient has suicidal ideation: No Patient has homicidal ideation: No - Past Medical History Cardiac Medical History: Reports: Hx Hypertension Pulmonary Medical History: Reports: Hx Asthma, Hx Bronchitis Renal/ Medical History: Denies: Hx Peritoneal Dialysis Musculoskeletal Medical History: Reports Hx Arthritis, Reports Hx Musculoskeletal Deformity Past Surgical History: Reports: Hx Hysterectomy, Hx Orthopedic Surgery - left total hip replacement, Hx Tubal Ligation - Immunizations Immunizations up to date: Yes Hx Diphtheria, Pertussis, Tetanus Vaccination: Yes Vertical Provider Document - CONSTITUTIONAL General Appearance: WD/WN, No Apparent Distress - INFECTION CONTROL TRAVEL OUTSIDE OF THE [place] IN LAST 30 DAYS: No - HEENT HEENT: Atraumatic, Normocephalic. negative: Normal ENT Exam - Congested sinuses, tender maxillary sinuses bilaterally, unremarkable ears, unremarkable oral pharyngeal exam, normal eyes - NECK Neck: Normal Inspection - RESPIRATORY Respiratory: Breath Sounds Normal, No Respiratory Distress - CARDIOVASCULAR Cardiovascular: Regular Rate, Regular Rhythm - GI/ABDOMEN Gastrointestinal: Abdomen Soft, Abdomen Non-Tender - BACK Back: Normal Inspection - MUSCULOSKELETAL/EXTREMETIES Musculoskeletal/Extremeties: MAEW, FROM, Non-Tender - NEURO Level of Consciousness: Awake, Alert, Appropriate Motor/Sensory: No Motor Deficit, No Sensory Deficit - DERM Integumentary: Warm, Dry, No Rash Course - Re-evaluation Re-evalutation: Patient admits that she is supposed to be taking allergy medications for seasonal allergies, she ran out, she has been congested for over 2 weeks now, she has developed worsening congestion and pain, today her sinuses are hurting as well. She does have tender sinuses on exam. She has been trying Flonase nasal spray but is only worsening. Because of the duration she will be treated for sinusitis. No concerning findings otherwise. Placing back on antiallergy medications, discussed treatment, follow-up, return precautions. Patient states appreciation and agreement. Stable at time of discharge. - Vital Signs Vital signs: Temp Pulse Resp BP Pulse Ox 98.2 F 86 20 158/97 H 97 08/08/19 03:36 08/08/19 03:36 08/08/19 03:36 08/08/19 03:36 08/08/19 03:36 Discharge - Discharge Clinical Impression: Postnasal drip Sinusitis Qualifiers: Sinusitis location: maxillary Chronicity: acute Recurrence: non-recurrent Qualified Code(s): J01.00 - Acute maxillary sinusitis, unspecified Condition: Stable Disposition: HOME, SELF-CARE Additional Instructions: Take the antiallergy medications daily, refill this and stay on this. Take the amoxicillin as prescribed for sinus infection. Follow-up with primary care. Return to the emergency department for any concerning worsening symptoms including severe headache, fever, vomiting, or any other concerning or worsening symptoms. Prescriptions: Cetirizine HCl [24Hour Allergy] 10 mg PO DAILY #30 tablet Amoxicillin Trihydrate [Amoxil 500 mg Capsule] 1,000 mg PO BID 7 Days #28 capsule Referrals: SURESH CHAMBERS MD [Primary Care Provider] - Follow up as needed
[2019-08-08 05:42] VITALS: BP 158/95
== END 2019-08-08 05:48 | disposition home or self-care (01) ==
LOC: ER 03:30
DX: J01.00 Acute maxillary sinusitis, unspecified (principal); R09.82 Postnasal drip; J45.909 Unspecified asthma, uncomplicated; R05 Cough; I10 Essential (primary) hypertension; Z79.899 Other long term (current) drug therapy
CPT/HCPCS: 99283

== ENCOUNTER 2019-08-11 12:50 | Emergency (ER) | payer SELFPAY ==
--- NOTE | 2019-08-11 13:12 | ER Document Report ---
ED Medical Screen (RME) - General Chief Complaint: Breathing Difficulty Stated Complaint: TROUBLE BREATHING/COUGHING Time Seen by Provider: 08/11/19 13:08 Primary Care Provider: SURESH CHAMBERS MD [Primary Care Provider] - Follow up as needed Mode of Arrival: Ambulatory Information source: Patient Notes: 58-year-old female presents to ED for complaint of cough with shortness of breath 2 days. She states when she coughs so hard and makes it difficult to breathe. She states her throat is scratchy and she feels like there is something in her throat. Pressure at this time is 163/102. She states that she has been coughing real hard. She states she has been on losartan HCTZ she has been working. She states she does not have the allergy medicine that was working for her and stated they have put her on amoxicillin and Zyrtec. She said her primary doctor had her on Singulair 10 mg every night and that used to work. States she does not smoke drink or do any drugs. She states she is feeling a heaviness in the center of her chest. I have greeted and performed a rapid initial assessment of this patient. A comprehensive ED assessment and evaluation of the patient, analysis of test results and completion of medical decision making process will be conducted by an additional ED providers. TRAVEL OUTSIDE OF THE [place] IN LAST 30 DAYS: No - Related Data Allergies/Adverse Reactions: No Known Allergies Allergy (Verified 08/01/19 16:13) Past Medical History - Past Medical History Cardiac Medical History: Reports: Hx Hypertension Pulmonary Medical History: Reports: Hx Asthma, Hx Bronchitis Renal/ Medical History: Denies: Hx Peritoneal Dialysis Musculoskeltal Medical History: Reports Hx Arthritis, Reports Hx Musculoskeletal Deformity Past Surgical History: Reports: Hx Hysterectomy, Hx Orthopedic Surgery - left total hip replacement, Hx Tubal Ligation - Immunizations Immunizations up to date: Yes Hx Diphtheria, Pertussis, Tetanus Vaccination: Yes Physical Exam - Vital signs Vitals: Temp Pulse Resp BP Pulse Ox 98.3 F 115 H 18 163/102 H 97 08/11/19 13:04 08/11/19 13:04 08/11/19 13:04 08/11/19 13:04 08/11/19 13:04 Course - Vital Signs Vital signs: Temp Pulse Resp BP Pulse Ox 98.3 F 115 H 18 163/102 H 97 08/11/19 13:04 08/11/19 13:04 08/11/19 13:04 08/11/19 13:04 08/11/19 13:04 Doctor's Discharge - Discharge Referrals: SURESH CHAMBERS MD [Primary Care Provider] - Follow up as needed
[2019-08-11] MEDS ORDERED: ASPIRIN 81 MG TABLET, CHEWABLE PO ONE (13:13)
[2019-08-11 14:12] LABS: ABSOLUTE EOSINOPHILS # (AUTO) 0.1 10^3/uL (0.0-0.6); ABSOLUTE LYMPHOCYTES (AUTO) 2.1 10^3/uL (0.5-4.7); ABSOLUTE MONOCYTES (AUTO) 0.4 10^3/uL (0.1-1.4); ABSOLUTE NEUT (AUTO) 1.2 10^3/uL (1.7-8.2); BASOPHILS % (AUTO) 0.4 % (0-2); EOSINOPHILS % (AUTO) 3.6 % (0-6); HEMATOCRIT 45.5 % (36.0-47.0); HEMOGLOBIN 15.4 g/dL (12.0-15.5); LYMPHOCYTES % (AUTO) 54.7 % (13-45); MEAN CORPUSCULAR HEMOGLOBIN 29.7 pg (27.0-33.4); MEAN CORPUSCULAR HGB CONC 33.9 g/dL (32.0-36.0); MEAN CORPUSCULAR VOLUME 88 fl (80-97); PLATELET COUNT 255 10^3/uL (150-450); SEGMENTED NEUTROPHILS % (AUTO) 31.3 % (42-78); TOTAL CELLS COUNTED % (AUTO) 100 %; WHITE BLOOD COUNT 3.9 10^3/uL (4.0-10.5)
[2019-08-11 14:19] LABS: INTERNATIONAL RATION (INR) 1.11; PROTHROMBIN TIME 14.4 SEC (11.4-15.4)
[2019-08-11 14:20] LABS: PARTIAL THROMBOPLASTIN TIME 32.5 SEC (23.5-35.8)
[2019-08-11] MEDS ORDERED: IPRATROPIUM/ALBUTEROL 0.5-2.5 MG/3 ML AMPUL NEB ONE (14:20)
[2019-08-11] MEDS ORDERED: BENZONATATE 100 MG CAPSULE PO ONE (14:20)
[2019-08-11 14:22] LABS: ALBUMIN 4.3 g/dL (3.5-5.0); ALKALINE PHOSPHATASE 90 U/L (38-126); ANION GAP 6 (5-19); ASPARTATE AMINO TRANSFERASE 26 U/L (14-36); BILIRUBIN,DIRECT 0.1 mg/dL (0.0-0.4); BILIRUBIN,TOTAL 0.6 mg/dL (0.2-1.3); BLOOD UREA NITROGEN 11 mg/dL (7-20); CALCIUM 9.6 mg/dL (8.4-10.2); CARBON DIOXIDE 31 mmol/L (22-30); CHLORIDE 100 mmol/L (98-107); CREATINE KINASE 207 U/L (30-135); GLUCOSE 77 mg/dL (75-110); POTASSIUM 3.9 mmol/L (3.6-5.0); TOTAL PROTEIN 7.8 g/dL (6.3-8.2)
--- NOTE | 2019-08-11 14:22 | RADIOLOGY REPORT (SQ) ---
EXAM DESCRIPTION: CHEST 2 VIEWS COMPLETED DATE/TIME: 08/11/2019 2:10 pm REASON FOR STUDY: chest heaviness COMPARISON: 08/01/2019 TECHNIQUE: Frontal and lateral radiographic views of the chest acquired. NUMBER OF VIEWS: Two view. LIMITATIONS: None. FINDINGS: LUNGS AND PLEURA: No pneumothorax. No consolidation or pleural effusion. MEDIASTINUM AND HILAR STRUCTURES: Stable. HEART AND VASCULAR STRUCTURES: Stable. BONES: No acute findings. HARDWARE: None in the chest. OTHER: No other significant finding. IMPRESSION: NO ACUTE FINDINGS. TECHNICAL DOCUMENTATION: JOB ID: [id number] [id number] 2010 [employer]- All Rights Reserved Reading location - IP/workstation name: [email or web address]
[2019-08-11 14:34] LABS: NT PRO BNP 29 pg/mL (<125)
[2019-08-11 14:37] LABS: TROPONIN I < 0.012 ng/mL
--- NOTE | 2019-08-11 14:44 | EKG REPORT ---
SEVERITY:- BORDERLINE ECG - SINUS RHYTHM PROBABLE LEFT ATRIAL ABNORMALITY : Confirmed by: Chicho Banks MD 11-Aug-2019 14:43:31
[2019-08-11] MEDS ORDERED: HYDRALAZINE HCL INJ/PF 20 MG/1 ML SDV IV ONE (15:37)
--- NOTE | 2019-08-11 15:42 | ER Document Report ---
ED General - General Chief Complaint: Sinus Congestion Stated Complaint: TROUBLE BREATHING/COUGHING Time Seen by Provider: 08/11/19 13:08 Primary Care Provider: SURESH CHAMBERS MD [Primary Care Provider] - Follow up in 3-5 days Mode of Arrival: Ambulatory Notes: Patient is a 58-year-old female who presents emergency department with a chief complaint of a cough. Patient states that she has allergies and asthma. She was recently placed on steroids and antibiotics. She is still currently taking her antibiotics. Patient states that her cough has been going on for the past 2 days. Patient does not have an albuterol inhaler. Patient states that she took her blood pressure medication this morning, but has high blood pressure here in the emergency department. TRAVEL OUTSIDE OF THE [place] IN LAST 30 DAYS: No - Related Data Allergies/Adverse Reactions: No Known Allergies Allergy (Verified 08/01/19 16:13) Home Medications: losartan/hctz 100/25 qd. singular gd. amoxicillin 500mg 2 capBID Past Medical History - General Information source: Patient - Social History Smoking Status: Unknown if Ever Smoked Family History: Reviewed & Not Pertinent, DM, Malignancy. denies: Arthritis, CAD, COPD, CVA, Hyperlipidemia, Hypertension, Thyroid Disfunction Patient has suicidal ideation: No Patient has homicidal ideation: No - Past Medical History Cardiac Medical History: Reports: Hx Hypertension Pulmonary Medical History: Reports: Hx Asthma, Hx Bronchitis Renal/ Medical History: Denies: Hx Peritoneal Dialysis Musculoskeletal Medical History: Reports Hx Arthritis, Reports Hx Musculoskeletal Deformity Past Surgical History: Reports: Hx Hysterectomy, Hx Orthopedic Surgery - left total hip replacement, Hx Tubal Ligation - Immunizations Immunizations up to date: Yes Hx Diphtheria, Pertussis, Tetanus Vaccination: Yes Review of Systems - Review of Systems Notes: REVIEW OF SYSTEMS: CONSTITUTIONAL : Denies recent illness. Denies recent unintentional weight loss. Denies fever, chills, or sweats. EENT: Denies eye, ear, throat, or mouth pain, discharge, or symptoms. Denies nasal or sinus congestion. CARDIOVASCULAR: Denies chest pain. RESPIRATORY: See HPI. GASTROINTESTINAL: Denies nausea, vomiting, and diarrhea. Denies abdominal pain. Denies constipation. GENITOURINARY: Denies difficulty urinating, burning, blood in urine, urgency or frequency. MUSCULOSKELETAL: Denies neck and back pain. Denies joint pain or swelling. SKIN: Denies rash, itchiness, or lesions HEMATOLOGIC : Denies easy bruising or bleeding. LYMPHATIC: Denies swollen, painful, enlarged glands. NEUROLOGICAL: Denies no numbness or tingling denies weakness. Denies headache. Denies altered mental status. Denies alteration in speech. PSYCHIATRIC: Denies stress, anxiety, alteration in sleep patterns, or depression. All other systems reviewed and negative. Physical Exam - Vital signs Vitals: Temp Pulse Resp BP Pulse Ox 98.3 F 115 H 18 163/102 H 97 08/11/19 13:04 08/11/19 13:04 08/11/19 13:04 08/11/19 13:04 08/11/19 13:04 - Notes Notes: PHYSICAL EXAMINATION: GENERAL: Appears well, healthy, well-nourished, no acute distress. HEAD: Normocephalic, atraumatic. EYES: PERRL, conjunctiva normal, all extraocular movements intact, sclera nonicteric ENT: Moist mucous membranes. NECK: Supple, no noticeable swelling, redness, rash. Normal range of motion. LUNGS: Diminished breath sounds bilaterally to auscultation. No wheezes rales or rhonchi. CARDIOVASCULAR: S1-S2, regular rate, regular rhythm. Radial pulses 2+, normal. ABDOMEN: Normoactive bowel sounds. Soft, nontender, no guarding, no rebound tenderness, and no masses palpated. EXTREMITIES: Normal strength and range of motion, no pitting or edema. No cyanosis. NEUROLOGICAL: Moves all extremities upon command. Strength 5/5 in all extre mities. PSYCH: Normal mood, normal affect. SKIN: Warm, dry. No rash, lesions, ulcerations noted. Normal skin turgor. Course - Re-evaluation Re-evalutation: 08/11/19 15:39 Patient states that she feels better after receiving a DuoNeb treatment. She states that she feels good and would like to go home. Her blood pressure is 1 63/126. She will receive 10 mg of hydralazine IV. I will also refill her Singulair. She also be started on guaifenesin. Patient ended up having coughing fit in her heart rate went up to 130s, but came down when she stopped having her coughing fit. Her heart rate is now 97. Chest x-ray is normal. Creatinine is slightly elevated. I have encouraged the patient to drink plenty of fluids. Patient will follow-up with her primary care provider. Follow-up precautions were given. Verbal discharge instructions were given to the patient. They verbalized understanding. They are stable for discharge. - Vital Signs Vital signs: Temp Pulse Resp BP Pulse Ox 98.1 F 115 H 18 148/85 H 96 08/11/19 16:07 08/11/19 13:04 08/11/19 16:01 08/11/19 16:01 08/11/19 16:01 - Laboratory Result Diagrams: 08/11/19 13:35 08/11/19 13:35 Laboratory results interpreted by me: 08/11/19 08/11/19 13:35 13:35 WBC 3.9 L Lymph % (Auto) 54.7 H Absolute Neuts (auto) 1.2 L Seg Neutrophils % 31.3 L Carbon Dioxide 31 H Creatine Kinase 207 H Discharge - Discharge Clinical Impression: Cough, Essential hypertension Condition: Stable Disposition: HOME, SELF-CARE Additional Instructions: You are seen today in the emergency department for a cough. Please continue the antibiotics you were given. You are also being given guaifenesin, medication to help loosen the mucus and to help you cough the phlegm up. You are also being given Tessalon Perles to help soothe your cough. Your Singulair is being re filled. Please follow-up with your primary care provider regards to this visit. Have him recheck your blood pressure, as it was high here in the emergency department. You are also being sent home with an albuterol inhaler. You can take 1 to 2 puffs every 4-6 hours as needed for shortness of breath. Prescriptions: Montelukast Sodium [Singulair 10 mg Tablet] 10 mg PO QHS #30 tablet Benzonatate [Tessalon Perles 100 mg Capsule] 100 mg PO Q8HP PRN #40 capsule PRN Reason: Guaifenesin [Mucinex] 600 mg PO BID #14 tablet.sa Forms: Elevated Blood Pressure Referrals: SURESH CHAMBERS MD [Primary Care Provider] - Follow up in 3-5 days
[2019-08-11] MEDS ORDERED: ALBUTEROL SULFATE HFA (90 MCG/PUFF) 8 GM MDI (1 MDI/ER DISP) IH PRN (15:43)
[2019-08-11 16:08] VITALS: BP 148/85
== END 2019-08-11 16:17 | disposition home or self-care (01) ==
LOC: ER 12:50
DX: R05 Cough (principal); I10 Essential (primary) hypertension; R09.81 Nasal congestion; Z90.710 Acquired absence of both cervix and uterus; Z96.642 Presence of left artificial hip joint
CPT/HCPCS: 93005; 36415; 82553; 82550; 83735; 84443; 85025; 85610; 85730; 80053; 84484; 83880; 71046; 93010; J0360; J3490; J7620; 94640; 96374; 99284